=== PATIENT | female | born 1995 | race Native Hawaiian/Other Pacific Islander ===

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

== ENCOUNTER 2017-01-15 15:40 | Emergency (ER) | payer OTHER ==
[~2017-01-15] VITALS: Ht 154.9 cm; Wt 72.6 kg
[2017-01-15 16:04] VITALS: BP 115/64; TEMP 98.2
== END 2017-01-15 17:50 | disposition home or self-care (01) ==
LOC: ED 15:40
PROC: 2W2QX4Z Dressing of Right Lower Leg using Bandage (ICD-10-PCS; principal; 2017-01-15)
PROC: 0HDKXZZ Extraction of Right Lower Leg Skin, External Approach (ICD-10-PCS; 2017-01-15)
DX: T24.231A Burn of second degree of right lower leg, initial encounter (principal); T31.0 Burns involving less than 10% of body surface; X17.XXXA Contact with hot engines, machinery and tools, initial encounter
CPT/HCPCS: 90471; 90715; 99283

== ENCOUNTER 2017-07-29 11:54 | Outpatient (CLI) | payer OTHER | END 2017-07-29 19:24 | disposition home or self-care (01) | LOC: LABW 11:54 | DX: N91.0 Primary amenorrhea (principal) | CPT/HCPCS: 36415; 84702 ==

== ENCOUNTER 2017-10-11 01:18 | Emergency (ER) | payer OTHER ==
[~2017-10-11] VITALS: Ht 157.5 cm; Wt 80.3 kg
[2017-10-11 01:34] VITALS: TEMP 98.6
[2017-10-11 02:04] LABS: PLATELET COUNT 218 K/uL (152-353)
[2017-10-11 03:15] VITALS: BP 104/75
== END 2017-10-11 03:18 | disposition home or self-care (01) ==
LOC: ED 01:18
DX: R10.84 Generalized abdominal pain (principal); Z3A.15 15 weeks gestation of pregnancy
CPT/HCPCS: 36415; 80307; 81000; 85027; 96360; 99284

== ENCOUNTER 2017-10-21 08:24 | Outpatient (CLI) | payer OTHER | END 2017-10-21 08:46 | disposition short-term general hospital (02) | LOC: AMB 08:24 | DX: O42.012 Preterm premature rupture of membranes, onset of labor within 24 hours of rupture, second trimester (principal); Z37.1 Single stillbirth | CPT/HCPCS: A0425; A0427 ==

== ENCOUNTER 2017-10-23 21:00 | Emergency (ER) | payer OTHER ==
[~2017-10-23] VITALS: Ht 154.9 cm; Wt 80.7 kg
[2017-10-23 22:09] LABS: PLATELET COUNT 195 K/uL (152-353)
[2017-10-23 22:23] LABS: POTASSIUM 3.5 mmol/L (3.6-5.2)
[2017-10-24 00:05] VITALS: BP 127/62; TEMP 98.2
== END 2017-10-24 00:06 | disposition home or self-care (01) ==
LOC: ED 21:00
PROVIDERS: Specialist
DX: N71.9 Inflammatory disease of uterus, unspecified (principal); Z98.890 Other specified postprocedural states
CPT/HCPCS: 36415; 74022; 80048; 81000; 85027; 96365; 96375; 99284; J0696; J2175; J2405

== ENCOUNTER 2018-02-21 09:40 | Outpatient (CLI) | payer OTHER | END 2018-02-21 23:48 | disposition home or self-care (01) | LOC: LABW 09:40 | DX: Z32.00 Encounter for pregnancy test, result unknown (principal) | CPT/HCPCS: 36415; 84144; 84702 ==

== ENCOUNTER 2018-02-23 14:12 | Outpatient (CLI) | payer OTHER | END 2018-02-23 19:46 | disposition home or self-care (01) | LOC: LABW 14:12 | DX: Z3A.01 Less than 8 weeks gestation of pregnancy (principal) | CPT/HCPCS: 36415; 84702 ==

== ENCOUNTER 2018-05-19 20:33 | Emergency (ER) | payer OTHER ==
[~2018-05-19] VITALS: Ht 154.9 cm; Wt 79.4 kg
[2018-05-19 21:47] VITALS: BP 118/72; TEMP 98.1
== END 2018-05-19 21:47 | disposition home or self-care (01) ==
LOC: ED 20:33
DX: M54.5 Low back pain (principal); Z33.1 Pregnant state, incidental
CPT/HCPCS: 99282

== ENCOUNTER 2019-03-13 18:14 | Emergency (ER) | payer OTHER ==
[~2019-03-13] VITALS: Ht 157.5 cm; Wt 81.6 kg
[2019-03-13 19:20] VITALS: BP 110/62; TEMP 97.4
== END 2019-03-13 19:20 | disposition home or self-care (01) ==
LOC: ED 18:14
DX: L03.116 Cellulitis of left lower limb (principal)
CPT/HCPCS: 99282

== ENCOUNTER 2021-01-13 11:43 | Observation (INO) | payer OTHER ==
[~2021-01-13] VITALS: Ht 154.9 cm; Wt 71.2 kg
[2021-01-13 12:50] LABS: PLATELET COUNT 196 K/uL (152-353)
[2021-01-13 12:56] LABS: POTASSIUM 3.2 mmol/L (3.6-5.2)
[2021-01-13 13:27] VITALS: BP 118/64; TEMP 98.3; Ht 154.9 cm; Wt 71.2 kg
[2021-01-13] MEDS ORDERED: CLIN300C PO (15:42)
[2021-01-13] MEDS ORDERED: MUPIROCIN2 % EX (15:42)
[2021-01-13] MEDS ORDERED: 904272561 PO (15:45)
[2021-01-13] MEDS ORDERED: WIXELA INHUB 501 AER INH (15:46)
[2021-01-13] MEDS ORDERED: ALPR0.5T24 PO (15:47)
[2021-01-13 16:00] VITALS: BP 101/59; TEMP 98
[2021-01-13 20:05] VITALS: BP 95/56; TEMP 98
[2021-01-14 00:14] VITALS: BP 103/53; TEMP 98.1
[2021-01-14 04:00] VITALS: BP 99/54; TEMP 97.9
[2021-01-14 05:36] LABS: PLATELET COUNT 185 K/uL (152-353)
[2021-01-14 05:52] LABS: POTASSIUM 4.2 mmol/L (3.6-5.2)
[2021-01-14 07:57] VITALS: BP 101/48; TEMP 97.8
[2021-01-14 12:14] VITALS: BP 97/41; TEMP 98
[2021-01-14 16:30] VITALS: BP 106/53; TEMP 98.2
== END 2021-01-14 16:55 | disposition home or self-care (01) ==
LOC: MED/SURG 11:43
PROVIDERS: ADMIT Family Medicine; ATTEND Family Medicine
DX: L03.116 Cellulitis of left lower limb (principal)
CPT/HCPCS: 36415; 36416; 80053; 81000; 83735; 84100; 85027; 87040; 87635; 96365; 96366; 96367; 96375; 99220; G0378; G0379; J1885; J2405; J2543; J2930; U0003

== ENCOUNTER 2022-11-19 13:12 | Emergency (ER) | payer OTHER ==
[~2022-11-19] VITALS: Ht 154.9 cm; Wt 67.1 kg
[~2022-11-19 13:12] MED LIST changes: +904272561 PO; +ALPR0.5T24 PO; +CLIN300C PO; +MUPIROCIN2 % EX; +WIXELA INHUB 501 AER INH
[2022-11-19 13:15] VITALS: BP 107/64; TEMP 97.5
== END 2022-11-19 16:58 | disposition home or self-care (01) ==
LOC: ED 13:12
DX: O46.90 Antepartum hemorrhage, unspecified, unspecified trimester (principal); Z3A.01 Less than 8 weeks gestation of pregnancy
CPT/HCPCS: 80307; 81000; 84702; 96372; 99283; J2405

== ENCOUNTER 2022-11-24 11:28 | Observation (INO) | payer OTHER ==
[~2022-11-24] VITALS: Ht 157.5 cm; Wt 65.9 kg
[2022-11-24 12:22] LABS: POTASSIUM 3.5 mmol/L (3.6-5.2)
[2022-11-24 17:49] VITALS: BP 106/67; TEMP 98.7; Ht 157.5 cm; Wt 65.9 kg
[2022-11-24] MEDS ORDERED: ALBU90AE13 INH (18:11)
[2022-11-24] MEDS ORDERED: ONDA4TAB3 PO (18:12)
[2022-11-24 18:26] LABS: PLATELET COUNT 194 K/uL (152-353)
[2022-11-24 18:41] LABS: POTASSIUM 3.3 mmol/L (3.6-5.2)
[2022-11-24 19:31] VITALS: BP 92/44; TEMP 98
[2022-11-24 23:30] VITALS: BP 91/40; TEMP 98.6
[2022-11-25 03:50] VITALS: BP 100/50; TEMP 98.5
[2022-11-25 07:25] VITALS: BP 91/37; TEMP 98.6
[2022-11-25 12:17] VITALS: BP 86/54; TEMP 98.8
== END 2022-11-25 12:49 | disposition home or self-care (01) ==
LOC: LABW 11:28 → MED/SURG 17:12
PROVIDERS: Nurse Practitioner Family; ADMIT Family Medicine; ATTEND Family Medicine
DX: O21.1 Hyperemesis gravidarum with metabolic disturbance (principal); E86.0 Dehydration; Z3A.01 Less than 8 weeks gestation of pregnancy
CPT/HCPCS: 36415; 80053; 81000; 84702; 85027; 87040; 87088; 96360; 96361; 96375; 99221; G0378; J2405

== ENCOUNTER 2023-01-02 10:23 | Emergency (ER) | payer OTHER ==
[~2023-01-02] VITALS: Ht 154.9 cm; Wt 68.0 kg
[~2023-01-02 10:23] MED LIST changes: +ALBU90AE13 INH; +ONDA4TAB3 PO
[2023-01-02 11:15] LABS: PLATELET COUNT 258 K/uL (152-353)
[2023-01-02 11:22] LABS: POTASSIUM 3.5 mmol/L (3.6-5.2)
[2023-01-02 13:30] VITALS: BP 105/64; TEMP 98.2
== END 2023-01-02 13:30 | disposition home or self-care (01) ==
LOC: ED 10:23
PROVIDERS: Family Medicine
DX: R11.10 Vomiting, unspecified (principal); R53.1 Weakness; Z3A.13 13 weeks gestation of pregnancy
CPT/HCPCS: 36415; 80053; 81002; 83735; 84443; 85027; 96360; 99284